=== PATIENT | female | born 1975 | race Two or more races ===

== ENCOUNTER 2024-08-23 09:47 | Emergency (ER) | payer MEDICAID, SELFPAY ==
--- NOTE | 2024-08-23 10:13 | PD.EDFMALE ---
ED Female Urogenital RME/HPI General Chief complaint: Dental/Oral/Throat Stated complaint: PAIN ON URINATION, SORE THROAT W/ EARACHE X 2 WKS Time Seen by Provider: 08/23/24 10:13 Source: patient Arrival date/time: 08/23/24 09:47 48-year-old female with no known medical history presents to the emergency room with a chief complaint of dysuria, sore throat, earache x 2 weeks. Mode of arrival: ambulatory Limitations: no limitations Related Data Previous Rx's ?Medication ?Instructions ?Recorded doxycycline monohydrate 100 mg 100 mg PO BID 7 days #14 caps 08/23/24 capsule Allergies Allergy/AdvReac Type Severity Reaction Status Date / Time No Known Allergies Allergy Verified 08/23/24 09:53 Review of Systems Review of Systems Systems Reviewed: All systems reviewed, normal except as documented Constitutional Constitutional: Reports system reviewed and no additional complaints, except as documented, Denies fatigue, Denies fever(s), Denies headache(s) and Denies weakness Eyes Eyes: Reports system reviewed and no additional complaints, except as documented, Denies blurry vision and Denies change in vision ENT Ears, Nose, Mouth, and Throat: Reports system reviewed and no additional complaints, except as documented, Denies otalgia, Denies headache(s), Denies nasal congestion, Denies throat swelling and Denies vertigo Cardiovascular Cardiovascular: Reports system reviewed and no additional complaints, except as documented, Denies chest pain, Denies dyspnea and Denies dyspnea on exertion Respiratory Respiratory: Reports system reviewed and no additional complaints, except as documented, Denies chest congestion, Denies cough, Denies dyspnea, Denies dyspnea on exertion and Denies wheezing Gastrointestinal Gastrointestinal: Reports system reviewed and no additional complaints, except as documented, Denies abdominal pain, Denies cramping, Denies nausea and Denies vomiting Genitourinary Genitourinary: Reports system reviewed and no additional complaints, except as documented, Reports dysuria, Reports vaginal discharge and Reports vaginal pruritus Musculoskeletal Musculoskeletal: Reports system reviewed and no additional complaints, except as documented and Denies back pain Integumentary/Breasts Skin/Breast: Reports system reviewed and no additional complaints, except as documented and Denies wounds Neurologic Neurologic: Reports system reviewed and no additional complaints, except as documented, Denies confusion, Denies headache(s), Denies lack of coordination, Denies vertigo and Denies weakness Psychiatric Psychiatric: Reports system reviewed and no additional complaints, except as documented, Denies anxiety, Denies confusion, Denies depression, Denies paranoia, Denies suicidal ideation and Denies tactile hallucinations Endocrine Endocrine: Reports system reviewed and no additional complaints, except as documented and Denies fatigue Hematologic/Lymphatic Hematologic/Lymphatic: Reports system reviewed and no additional complaints, except as documented and Denies lymphadenopathy Allergic/Immunologic Allergic/Immunologic: Reports system reviewed and no additional complaints, except as documented, Denies throat swelling, Denies urticaria and Denies wheezing Past Medical History Social History SMOKING STATUS: Former smoker ED Exam General Limitations: Present no limitations General appearance: Present alert and in no apparent distress Head Head exam: Present atraumatic Eye Eye exam: Present normal appearance, PERRL and EOMI ENT ENT exam: Present normal exam, normal oropharynx and mucous membranes moist Neck Neck exam: Present normal inspection, full ROM and trachea midline Chest Chest inspection: Present normal inspection and symmetric chest wall rise Respiratory Respiratory exam: Present normal lung sounds bilaterally Cardiovascular Cardiovascular exam: Present regular rate, normal rhythm and normal heart sounds Abdominal Exam Abdominal exam: Present soft and normal bowel sounds; Absent tenderness Extremities Exam Extremities exam: Present normal inspection and full ROM Back Exam Back exam: Present normal inspection and full ROM Neurological Exam Neurological exam: Present alert, oriented X3 and CN II-XII intact Psychiatric Psychiatric exam: Present normal affect and normal mood Skin Skin exam: Present warm, dry, intact and normal color Course Quality Measures none Orders Category Date Time Status CBC Stat Lab 08/23/24 10:28 Completed CMP [Comprehensive Metabolic Panel] Stat Lab 08/23/24 10:28 Completed Chlamydia/GC/TV - PCR Stat Lab 08/23/24 10:58 Received Syphilis Stat Lab 08/23/24 10:28 Completed UA, C/S IF [Urinalysis, C/S if Indicated] Stat Lab 08/23/24 10:58 Completed cefTRIAXone [Rocephin] 1,000 mg Med 08/23/24 12:37 Discontinued Lidocaine 1% 20 ml [Xylocaine 1% 20 ML] 2.1 ml IM X1 Vital Signs Vital signs: Vital Signs Temperature 98.8 F 08/23/24 10:22 Pulse Rate 72 08/23/24 10:22 Respiratory Rate 16 08/23/24 10:22 Blood Pressure 131/86 H 08/23/24 10:22 Pulse Oximetry (%) 99 08/23/24 10:22 Oxygen Delivery Method Room Air 08/23/24 10:22 O2 saturation 99% within normal limits Urogenital - Female MDM Narrative MDM Narrative:: 48-year-old female with no known medical history presents to the emergency room with a chief complaint of dysuria, sore throat, earache x 2 weeks. Patient is hemodynamically stable and in no apparent distress. There is no tachycardia no tachypnea and the patient is afebrile Physical examination shows a soft nontender abdomen. ENT examination shows a erythemic posterior pharynx but bilateral tympanic membranes are not erythemic and nonbulging. Patient states that her primary complaint today is having vaginal discharge. Patient states there is a chance that this can be STD related and she states that discharge is green and sometimes clear. I spoke to the patient and told her that her urinalysis was negative for any urinary tract infection. I spoke to her and asked her if she would like me to treat her prophylactically for STDs she agreed with the plan and stated that she will follow-up tomorrow in her patient portal to check what her STD results are. Patient was discharged and educated to follow-up with primary care provider in the next 24 to 48 hours and return to the emergency room for any evidence of worsening signs or symptoms Patient data External records reviewed:: [facility] previous records Clinical information provided by:: patient Social determinants that could affect healthcare access:: none Patient has the following chronic illnesses:: No chronic illness How is presenting disease/condition affected by chronic disease/condition?: no chronic disease Evaluation data The following diagnostics were reviewed and interpreted by me:: lab results and radiology exam(s) Lab and/or radiology exams considered but not ordered:: Labs and radiology exams considered and ordered Interpretation Summary: N/A Medications / Prescriptions Medications or Prescriptions considered but not ordered:: Medication given Medication administrations:: Medication Administration History Discontinued Medications Ceftriaxone Sodium 1,000 mg/ (Lidocaine HCl 2.1 ml) 0 mg IM X1 ONE Stop: 08/23/24 12:38 Last Admin: 08/23/24 13:02 Dose: 1,000 mg Documented By: LAKHWINDER Medication given Consultations Consultation(s) initiated? (list below): No Diagnosis Urogenital Female Differential Diagnosis: urinary tract infection, bacterial vaginosis, trichomoniasis, vaginitis and other (Gonorrhea/chlamydia/vaginal discharge) Most likely diagnosis given after review of the tests above:: Vaginal discharge Admission Indicated Admission indicated?: not indicated Admission Request Was there a request for admission?: No Disposition Plan Disposition Plan: Discharge Discharge Attestation Discharge Attestation: The patient and all family members were given an opportunity to ask questions and understood the discharge instructions. Discharge instructions specifically effects, indications for sooner follow up or return to the emergency department, and the expected course of current diagnosis. Patient condition: Stable Discharge Plan Plan Patient Disposition: HOME (Self Care) Disposition Comment: Stable Prescriptions/Referrals Prescriptions/Med Rec: New doxycycline monohydrate 100 mg capsule 100 mg PO BID 7 Days Qty: 14 0RF Referrals: Jimmy Rai MD [Primary Care Provider] - In 1 week Problem List Clinical Impression: Vaginal discharge Patient/Caregiver Discharge Instructions Education Materials: Vaginal Infection Additional Instructions: Por favor, consulte con burch m?dico de cabecera en las pr?ximas 24 a 48 horas. Burch an?lisis de orina jacob negativo para infecci?n del tracto urinario. Debido a burch flujo vaginal, le di tratamiento profil?ctico, ya que los resultados de burch prueba de enfermedad de transmisi?n sexual no estar?n disponibles hoy. Puede consultar burch portal del paciente ma?randolph por la ma?randolph para joseph bailey resultados. Si observa cualquier signo de empeoramiento de los signos o s?ntomas, acuda a urgencias de inmediato. Print Language: Estonian Stand Alone Forms: Nohemy Award Info., Work/School Release, Patient Portal Info Letter PA/NADYA Supervising Physician YANN/NADYA Supervising Physician: Dr. Feldman
[2024-08-23 10:22] VITALS: BP 131/86; PULSE 72; RESP 16; TEMP 37.1; O2SAT 99; BMI 27.4
[2024-08-23 10:46] LABS: Basophils # (Auto) 0.1 Thou/mm3 (0.0-0.2); Basophils % (Auto) 1 % (0-2.5); Eosinophils # (Auto) 0.1 Thou/mm3 (0.0-0.5); Eosinophils % (Auto) 1 % (0-10); Hematocrit 39.6 % (36.0-46.0); Hemoglobin 12.8 g/dL (12.0-16.0); Immature Granulocytes % (Auto) 1 % (0-0); Immature Granulocytes Auto 0.06 Thou/mm3 (0.00-0.00); Lymphocytes # (Auto) 1.1 Thou/mm3 (1.0-4.8); Lymphocytes % (Auto) 9 % (10-50); Mean Corpuscular HGB Conc 32.3 g/dl (31.0-37.0); Mean Corpuscular Hemoglobin 29.2 pg (25.0-35.0); Mean Corpuscular Volume 90 fL (80-100); Monocytes # (Auto) 0.9 Thou/mm3 (0.0-0.8); Monocytes % (Auto) 7 % (0-12); Neutrophils # (Auto) 10.2 Thou/mm3 (1.8-7.7); Neutrophils % (Auto) 82 % (37-80); Nucleated Red Blood Cell % 0 /100 WBC (0); Platelet Count 331 Thou/mm3 (140-440); RDW Standard Deviation 46.4 fL (36.4-46.3); Red Blood Count 4.39 Miln/mm3 (4.00-5.20); White Blood Count 12.4 Thou/mm3 (3.6-11.0)
[2024-08-23 11:02] LABS: Alanine Aminotransferase 13 U/L (10-49); Albumin, Serum 4.2 gm/dL (3.5-5.0); Albumin/Globulin Ratio 1.4 (1.2-2.2); Alkaline Phosphatase 80 U/L (46-116); Anion Gap 6 (7-16); Aspartate Amino Transferase 16 U/L (0-34); BUN/Creatinine Ratio 17 Ratio (12-20); Bilirubin,Total 0.5 mg/dL (0.3-1.2); Blood Urea Nitrogen 10 mg/dL (9-23); Calcium 8.8 mg/dL (8.3-10.6); Calcium (Corrected) 8.8 mg/dL (8.5-10.1); Carbon Dioxide 30.1 mMol/L (20.0-31.0); Chloride 105 mMol/L (98-107); Creatinine (Component) 0.6 mg/dL (0.6-1.3); Estimated Creatinine Clearance 92.6 mL/min (>60); Globulin 2.9 gm/dL (2.3-3.5); Glucose 102 mg/dL (74-106); Osmolality,Calculated 280 (275-295); Potassium 3.9 mMol/L (3.4-5.1); Sodium 141 mMol/L (136-145); Total Protein 7.1 gm/dL (5.7-8.2); eGFR > 60 See Note
[2024-08-23 11:05] LABS: Collection Type, Urine Clean Catch
[2024-08-23 11:14] LABS: Bilirubin,Urine Negative (Negative); Blood,Urine Negative (Negative); Clarity,Urine Clear (Clear/Hazy); Color,Urine Yellow (Lt Yel-Yel); Culture Indicated,Urine Not Indicated; Glucose, Urine Negative (Negative); Ketones,Urine Negative (Negative); Leukocyte Esterase,Urine Negative (Negative); Nitrite,Urine Negative (Negative); PH,Urine 6.5 (5.0-7.0); Protein,Urine Negative (Neg - Trace); RBC,Urine 1 /hpf (0-3); Specific Gravity,Urine 1.027 (1.001-1.035); Squamous Epithelial Cell,Urine 1 /hpf (0-5); Urobilinogen,Urine Negative mg/dL (0.0-1.0); WBC,Urine 1 /hpf (0-5)
[2024-08-23 11:18] LABS: Syphilis Nonreactive (Nonreactive)
[2024-08-23] MEDS: cefTRIAXone 1,000 MG, LIDOCAINE 1% 20 ML 2.1 ML IM (13:02)
[2024-08-23 13:12] VITALS: BP 124/85; PULSE 66; RESP 18; TEMP 36.9; O2SAT 96
[2024-08-23 15:03] LABS: Chlamydia trachomatis PCR Negative (Not Detect); Neisseria Gonorrhoeae DNA PCR Negative (Not Detect); Trichomonas Negative (Negative)
== END 2024-08-23 13:13 | disposition home or self-care (01) ==
PROVIDERS: Nurse Practitioner Family; Emergency Provider Emergency Medicine; PCP Family Medicine
DX: N89.8 Other specified noninflammatory disorders of vagina (principal)
CPT/HCPCS: 36415; 80053; 81001; 85025; 86780; 87491; 87591; 87661; 96372; 99283; J0696; J3490

== ENCOUNTER 2024-09-11 18:09 | Emergency (ER) | payer MEDICAID, SELFPAY ==
--- NOTE | 2024-09-11 18:23 | EKG_ITS ---
[facility] Test Date: 2024-09-11 Pat Name: ALTAGRACIA MADRIGAL Department: Room: - Gender: Female Neurology Tech: : [id number] Requested By: Alvaro Mckeon Order Number: [id number] Reading MD: Alvaro Mckeon Measurements Intervals Randolph Rate: 68 P: 58 MO: 122 QRS: 58 QRSD: 112 T: 40 QT: 403 QTc: 431 Interpretive Statements SINUS RHYTHM MODERATE INTRAVENTRICULAR CONDUCTION DELAY [110+ ms QRS DURATION] No previous ECG available for comparison /store/S0/[id number]/ecg/[id number].pdf
[2024-09-11 18:24] VITALS: BP 153/90; PULSE 70; RESP 16; TEMP 36.8; O2SAT 95
[2024-09-11 18:26] VITALS: BMI 23.3
--- NOTE | 2024-09-11 18:54 | PD.EDRME ---
Rapid Medical Screening Exam RME Arrival date/time: 09/11/24 18:09 Chief Complaint: Chest Pain Time Seen by Provider: 09/11/24 18:33 Vital signs: Vital Signs Temperature 98.3 F 09/11/24 18:24 Pulse Rate 70 09/11/24 18:24 Respiratory Rate 16 09/11/24 18:24 Blood Pressure 153/90 H 09/11/24 18:24 Pulse Oximetry (%) 95 09/11/24 18:24 Oxygen Delivery Method Room Air 09/11/24 18:24 Vital signs reviewed by provider: Yes RME Narrative: 48-year-old female presents with a 1 month history of dry cough cough, shortness of breath and pain in her chest and throat from coughing. She denies any fever or chills but has had runny nose and nasal congestion. She denies any ear pain, nausea, vomiting or diarrhea. DuoNeb treatment and chest x-ray ordered. I have greeted and performed a focused initial assessment of this patient. A comprehensive ED assessment and evaluation of the patient, analysis of all test results, and completion of the medical decision making process will be conducted by additional ED providers.
--- NOTE | 2024-09-11 18:55 | XR_ITS ---
Examination: PA and lateral chest 2 views TECHNIQUE: Upright PA and lateral chest 2 views Exam date and time: September 11, 2024 9007 hours INDICATIONS: Cough and shortness of breath beginning one month ago. FINDINGS: Normal heart size. Lungs are clear. Osseous structures are intact with mild thoracic dextroscoliosis IMPRESSION: No active disease
--- NOTE | 2024-09-11 18:57 | EDNOTE_ITS ---
ED General RME/HPI General Chief complaint: Chest Pain Stated complaint: CHEST PAIN WITH DIZZINESS Time Seen by Provider: 09/11/24 18:33 Arrival date/time: 09/11/24 18:09 RME / HPI RME / HPI narrative: 48-year-old female presents with a 1 month history of dry cough cough, shortness of breath and pain in her chest and throat from coughing. She denies any fever or chills but has had runny nose and nasal congestion. She denies any ear pain, nausea, vomiting or diarrhea. DuoNeb treatment and chest x-ray ordered. I have greeted and performed a focused initial assessment of this patient. A comprehensive ED assessment and evaluation of the patient, analysis of all test results, and completion of the medical decision making process will be conducted by additional ED providers. Onset (ago): month(s) (1) Related Data Previous Rx's ?Medication ?Instructions ?Recorded albuterol sulfate 90 mcg/actuation 2 puff inhalation Q 4H PRN 09/11/24 aerosol inhaler shortness of breath or wheez ing #8.5 grams azithromycin 250 mg tablet See Rx Instructions PO .COM PLEX #6 09/11/24 (Zithromax Z-Martir) tabs cetirizine 10 mg tablet (Zyrtec) 10 mg PO QDAY #30 tab s 09/11/24 prednisone 20 mg tablet 60 mg (3 x 20 mg) PO QDAY 4 days 09/11/24 #12 tabs promethazine-DM 6.25 mg-15 mg/5 mL 10 ml PO Q6H PRN co ugh #200 mL 09/11/24 oral syrup Allergies Allergy/AdvReac Type Severity Reaction Status Date / Time No Known Allergies Allergy Verified 09/11/24 18:11 Review of Systems Review of Systems Systems Reviewed: All systems reviewed, normal except as documented Narrative Review of Systems: Complains of dry cough, pain in chest and throat from coughing. Denies recent illness with Fever, nausea, vomiting, diarrhea, or abdominal pain. ED Exam General General appearance: Present alert and in no apparent distress Head Head exam: Present atraumatic and normal inspection Eye Eye exam: Present normal appearance; Absent scleral icterus or conjunctival injection ENT ENT exam: Present normal oropharynx, mucous membranes moist, TM's normal bilaterally, normal external ear exam and other (Pale boggy nares bilateral. No sinus tenderness.) Neck Neck exam: Present normal inspection Chest Chest inspection: Present normal inspection Respiratory Respiratory exam: Present wheezes; Absent respiratory distress, stridor or accessory muscle use Cardiovascular Cardiovascular exam: Present regular rate, normal rhythm and normal heart sounds Abdominal Exam Abdominal exam: Present soft; Absent distention, tenderness, guarding or rebound Extremities Exam Extremities exam: Present normal inspection Back Exam Back exam: Present full ROM Neurological Exam Neurological exam: Present alert and oriented X3 Psychiatric Psychiatric exam: Present normal affect and normal mood Skin Skin exam: Present warm, dry, intact and normal color Course Course Course Narrative: 48-year-old female presents with a 1 month history of dry cough cough, shortness of breath and pain in her chest and throat from coughing. She denies any fever or chills but has had runny nose and nasal congestion. She denies any ear pain, nausea, vomiting or diarrhea. DuoNeb treatment given and chest x-ray ordered. Patient given Prednisone 60mg PO. CXR reveals a pattern of Bronchitis. (Reviewed with Dr. Cook) Patient still actively coughing after DuoNeb. Patient will be discharged with Prednisone, Albuterol HFA, Zyrtec, ZPak, and Phenergan DM. Advised to return to ED for any new or worsening symptoms. Quality Measures none Orders Category Date Time Status EKG (ED ONLY) *Do not use* NOW Care 09/11/24 18:23 Completed EKG (ED Only) Stat Exams 09/11/24 18:23 Draft XR chest 2V Stat Exams 09/11/24 18:55 Taken Albuterol/Ipratr Rt Kacy [Duoneb Rt Kacy] Med 09/11/24 18:55 Discontinued 3 ml INH X1 ONE predniSONE Med 09/11/24 18:56 Discontinued 60 mg PO X1 ONE Reevaluation(s) Reevaluation #1: Still actively coughing after DuoNeb Discussed X-ray results with patient. Lungs are clear without wheezing. Vital Signs Vital signs: Vital Signs Temperature 98.3 F 09/11/24 18:24 Pulse Rate 70 09/11/24 18:24 Respiratory Rate 16 09/11/24 18:24 Blood Pressure 153/90 H 09/11/24 18:24 Pulse Oximetry (%) 95 09/11/24 18:24 Oxygen Delivery Method Room Air 09/11/24 18:24 Discharge Plan Plan Patient Disposition: HOME (Self Care) Discharge Disposition comment: Stable Prescriptions/Referrals Prescriptions/Med Rec: New albuterol sulfate 90 mcg/actuation HFA aerosol inhaler 2 puff inhalation Q4H PRN (Reason: shortness of breath or wheezing) Qty: 8.5 0RF prednisone 20 mg tablet 60 mg PO QDAY 4 Days Qty: 12 0RF Rx Instructions: Begin taking on Thursday azithromycin [Zithromax Z-Martir] 250 mg tablet See Rx Instructions .ROUTE .COMPLEX Qty: 6 0RF Rx Instructions: For 250 mg dose pack: take 500 mg today (day 1), then 250 mg for 4 days (days 2-5) promethazine-DM 6.25-15 mg/5 mL syrup 10 ml PO Q6H PRN (Reason: cough) Qty: 200 0RF cetirizine [Zyrtec] 10 mg tablet 10 mg PO QDAY Qty: 30 0RF Referrals: Bruna Hernandez, PROCESS ENGINEERING INTERN [Primary Care Provider] - In 1 week Problem List Clinical Impression: Bronchitis Patient/Caregiver Discharge Instructions Education Materials: ED Bronchitis with Wheezing (Adult) Additional Instructions: Follow-up with your primary care physician in 24 to 48 hours. Return to the ED for any new or worsening symptoms. Print Language: Azerbaijani Stand Alone Forms: Nohemy Award Info., Patient Portal Info Letter PA/SALES SUPPORT ENGINEER Supervising Physician PA/SALES SUPPORT ENGINEER Supervising Physician: Dr. Cook MDM Narrative MDM hospital course (for use when minimal MDM required): 48-year-old female presents with a 1 month history of dry cough cough, shortness of breath and pain in her chest and throat from coughing. She denies any fever or chills but has had runny nose and nasal congestion. She denies any ear pain, nausea, vomiting or diarrhea. DuoNeb treatment given and chest x-ray ordered. Patient given Prednisone 60mg PO. CXR reveals a pattern of Bronchitis. (Reviewed with Dr. Cook) Patient still actively coughing after DuoNeb. Patient will be discharged with Prednisone, Albuterol HFA, Zyrtec, ZPak, and Phenergan DM. Advised to return to ED for any new or worsening symptoms. Clinical Information Provided by: patient Medical Records reviewed None Meds/Rx considered, not ordered None Labs/Rad/Tests considered, not ordered None Chronic Illness/Social Conditions which may negatively complicate care or outcome(s)-explain: None or not applicable Labs Lab(s) Interpretation(s): No STEMI Imaging Imaging interpretation: Interpreted by me Imaging Interpretation(s): Pattern of Bronchitis. No pneumonia, pneumothorax, hemothorax. Medication Administration(s) Medication Administration History Discontinued Medications Albuterol/Ipratropium (Albuterol/Ipratropium (Duoneb) Rt Kacy 3 Ml Nebu) 3 ml INH X1 ONE Stop: 09/11/24 18:56 Last Admin: 09/11/24 19:41 Dose: 3 ml Documented By: KALINA Prednisone (Prednisone 20 Mg Tablet) 60 mg PO X1 ONE Stop: 09/11/24 18:57 Last Admin: 09/11/24 19:33 Dose: 60 mg Documented By: ESPINOZA Patterson, prednisone 60 mg p.o. Diagnosis Differential Diagnosis ED Complaint MDM: Pneumonia, bronchitis, chest pain, pleurisy, costochondritis, chest wall pa Diagnoses ruled out and/or further discussions: Pneumonia, ACS, costochondritis, chest wall pain.
[2024-09-11] MEDS: predniSONE 20 MG TABLET 60 MG PO (19:33)
[2024-09-11] MEDS: ALBUTEROL/IPRATROPIUM (Duoneb) RT SOL 3 ML NEBU INH (19:41)
[2024-09-11 19:42] VITALS: PULSE 66; RESP 18; O2SAT 99
== END 2024-09-11 20:48 | disposition home or self-care (01) ==
PROVIDERS: Emergency Provider Emergency Medicine; PCP Nurse Practitioner Family
DX: J40 Bronchitis, not specified as acute or chronic (principal)
CPT/HCPCS: 71046; 93005; 94640; 99283; A9270; J7512